=== PATIENT | female | born 1955 | race Caucasian/White ===

== ENCOUNTER 2019-03-05 15:55 | Emergency (ER) | payer OTHER ==
--- NOTE | 2019-03-05 16:00 | EDM.PDOC ---
ED HPI GENERAL MEDICAL PROBLEM - General Chief Complaint: Back Pain or Injury Stated Complaint: BACK PAIN Time Seen by Provider: 03/05/19 15:59 Source of Information: Reports: Patient History Limitations: Reports: No Limitations - History of Present Illness INITIAL COMMENTS - FREE TEXT/NARRATIVE: History of present illness: []Patient was putting her pants on on February 19 and did a little hop and when she landed on her feet she felt mid back pain. It has progressively worsened since recurred and she has seen her chiropractor 3 times and has had acupuncture without relief. She denies any shortness of breath, pain with deep breathing or movement, numbness, tingling or radiation of pain. Review of systems: As per history of present illness and below otherwise all systems reviewed and negative. Past medical history: As per history of present illness and as reviewed below otherwise noncontributory. Surgical history: As per history of present illness and as reviewed below otherwise noncontributory. Social history: No reported history of drug or alcohol abuse. Family history: As per history of present illness and as reviewed below otherwise noncontributory. Physical exam: General: Well developed, well nourished in NAD HEENT: Atraumatic, normocephalic, pupils reactive, negative for conjunctival pallor or scleral icterus, mucous membranes moist, throat clear, neck supple, nontender, trachea midline. Lungs: Clear to auscultation, breath sounds equal bilaterally, chest nontender. Heart: S1S2, regular, negative for clicks, rubs, or JVD. Abdomen: NABS, Soft, nondistended, nontender. Negative for masses or hepatosplenomegaly. Negative for costovertebral tenderness. Pelvis: Stable nontender. Genitourinary: Deferred. Rectal: Deferred. Extremities: Atraumatic, negative for cords or calf pain. Neurovascular unremarkable. Neuro: Awake, alert, oriented. Cranial nerves II through XII unremarkable. Cerebellum unremarkable. Motor and sensory unremarkable throughout. Exam nonfocal. Skin:warm and dry Diagnostics: Thoracic spine x-rays Therapeutics: declined pain meds ED Course: stable Impression: compression fracture Prescriptions: diclofenac, flexeril Plan: Take meds as directed, follow up with your primary care physician, return to ER if symptoms worsen or change. Definitive disposition and diagnosis as appropriate pending reevaluation and review of above. BACK Pain Score (Numeric/FACES): 4 - Related Data Allergies Allergy/AdvReac Type Severity Reaction Status Date / Time Penicillins Allergy Other Verified 03/05/19 16:10 Home Meds: Home Meds Cyclobenzaprine [Flexeril] 10 mg PO BID PRN #12 tab 03/05/19 [Rx] Diclofenac Sodium [Voltaren] 75 mg PO BIDMEALS PRN #20 tab.cr 03/05/19 [Rx] Ezetimibe 10 mg PO DAILY 03/05/19 [History] Pravastatin Sodium 20 mg PO DAILY 03/05/19 [History] ED ROS GENERAL - Review of Systems Review Of Systems: ROS reveals no pertinent complaints other than HPI. ED EXAM,LOWER BACK PAIN/INJURY - Physical Exam Exam: See Below Course - Vital Signs Last Recorded V/S: Last Vital Signs Temp 96.9 F 03/05/19 16:08 Pulse 83 03/05/19 16:08 Resp 16 03/05/19 16:08 BP 114/66 03/05/19 16:08 Pulse Ox 95 03/05/19 16:08 - Orders/Labs/Meds Orders: Active Orders 24 hr Category Date Time Status Thoracic Spine 2V [CR] Stat Exams 03/05/19 16:22 Taken Departure - Departure Time of Disposition: 17:02 Disposition: Home, Self-Care 01 Condition: Good Clinical Impression: Compression fx, thoracic spine Qualifiers: Encounter type: initial encounter Thoracic vertebra fracture level: unspecified thoracic vertebra Qualified Code(s): S22.000A - Wedge compression fracture of unspecified thoracic vertebra, initial encounter for closed fracture - Discharge Information *PRESCRIPTION DRUG MONITORING PROGRAM REVIEWED*: No *COPY OF PRESCRIPTION DRUG MONITORING REPORT IN PATIENT ROBBIN: No Prescriptions: Cyclobenzaprine [Flexeril] 10 mg PO BID PRN #12 tab PRN Reason: Pain Diclofenac Sodium [Voltaren] 75 mg PO BIDMEALS PRN #20 tab.cr PRN Reason: Pain Referrals: Gasper Penn MD [Primary Care Provider] - Forms: ED Department Discharge Additional Instructions: The following information is given to patients seen in the emergency department who are being discharged to home. This information is to outline your options for follow-up care. We provide all patients seen in our emergency department with a follow-up referral. The need for follow-up, as well as the timing and circumstances, are variable depending upon the specifics of your emergency department visit. If you don't have a primary care physician on staff, we will provide you with a referral. We always advise you to contact your personal physician following an emergency department visit to inform them of the circumstance of the visit and for follow-up with them and/or the need for any referrals to a consulting specialist. The emergency department will also refer you to a specialist when appropriate. This referral assures that you have the opportunity for follow-up care with a specialist. All of these measure are taken in an effort to provide you with optimal care, which includes your follow-up. Under all circumstances we always encourage you to contact your private physician who remains a resource for coordinating your care. When calling for follow-up care, please make the office aware that this follow-up is from your recent emergency room visit. If for any reason you are refused follow-up, please contact the [facility] Emergency Department at and asked to speak to the emergency department charge nurse. Take meds as directed, follow up with your primary care physician, return to ER if symptoms worsen or change. [facility] [address] [place] [address] - My Orders Last 24 Hours: My Active Orders 03/05/19 16:22 Thoracic Spine 2V [CR] Stat - Assessment/Plan Last 24 Hours: My Active Orders 03/05/19 16:22 Thoracic Spine 2V [CR] Stat
--- NOTE | 2019-03-05 17:01 | CR ---
Indication: Pain since 02/19/2019. Technique: Two views of the thoracic spine. Comparison: None Findings: The alignment of the thoracic spine is within normal limits. Compression of T11 is identified, chronicity uncertain. No other fractures are identified. Impression: Compression of T11, of uncertain chronicity. Dictated by Lorri Talavera MD @ Mar 05 2019 4:58PM Signed by Dr. Lorri Talavera @ Mar 05 2019 4:59PM
== END 2019-03-05 17:19 | disposition home or self-care (01) ==
LOC: MW.ED 15:55
DX: S22.088A Other fracture of T11-T12 vertebra, initial encounter for closed fracture (principal); Z88.0 Allergy status to penicillin; W19.XXXA Unspecified fall, initial encounter; Y93.89 Activity, other specified
CPT/HCPCS: 72070; 72070-26; 99283-25

== ENCOUNTER 2021-09-07 13:53 | Emergency (ER) | payer MEDICARE, OTHER ==
[2021-09-07] MEDS ORDERED: Acetaminophen/oxyCODONE 325-5 MG Tab PO ONE (14:22)
[2021-09-07] MEDS ORDERED: Dexamethasone 10 MG/ML SDV IM STA (14:22)
[2021-09-07] MEDS ORDERED: Diazepam 5 MG Tab PO ONE (14:22)
== END 2021-09-07 16:30 | disposition home or self-care (01) ==
LOC: MW.ED 13:53
DX: M54.50 Low back pain, unspecified (principal); E78.00 Pure hypercholesterolemia, unspecified; Z79.899 Other long term (current) drug therapy; Z88.0 Allergy status to penicillin
CPT/HCPCS: 72131; 96372; 99283; A9270; J1100

== ENCOUNTER 2023-11-30 20:49 | Emergency (ER) | payer MEDICARE, OTHER ==
[2023-11-30] MEDS: Acetaminophen/oxyCODONE 325-5 MG Tab PO ONE (22:59)
[2023-11-30] MEDS: Ibuprofen 600 MG Tab PO ONE (22:59)
== END 2023-12-01 01:25 | disposition home or self-care (01) ==
LOC: MW.ED 20:49
DX: S42.352A Displaced comminuted fracture of shaft of humerus, left arm, initial encounter for closed fracture (principal); E03.9 Hypothyroidism, unspecified; E78.00 Pure hypercholesterolemia, unspecified; Z79.899 Other long term (current) drug therapy; Z88.0 Allergy status to penicillin; W18.30XA Fall on same level, unspecified, initial encounter
CPT/HCPCS: 73030; 73060; 99283; A9270